=== PATIENT | male | born 1945 | race Caucasian/White ===

== ENCOUNTER 2021-09-09 18:12 | Emergency (ER) | payer MEDICARE ==
[~2021-09-09] VITALS: Ht 180.3 cm; Wt 120.5 kg
--- NOTE | 2021-09-09 23:30 | NUR ---
RELIEVING RN FOR BREAK, PT IS RESTING QUIETLY ON GURNEY, WAITING TO BE REEVALUATED BY PROVIDER, HAS RIDE HOME WITH ROOMMATE, JASON, [phone]
[2021-09-10] VITALS: BP 154/93
== END 2021-09-10 00:45 | disposition home or self-care (01) ==
LOC: ER 18:13
DX: M54.50 Low back pain, unspecified (principal); G89.29 Other chronic pain; F17.200 Nicotine dependence, unspecified, uncomplicated; E11.9 Type 2 diabetes mellitus without complications; W19.XXXA Unspecified fall, initial encounter; Y93.89 Activity, other specified; Y92.89 Other specified places as the place of occurrence of the external cause; Y99.8 Other external cause status
CPT/HCPCS: 72100; 99283; 99285

== ENCOUNTER → 2022-04-14 | Day surgery (SDC) | payer OTHER ==
[~2022-04-14] VITALS: Ht 180.3 cm; Wt 108.7 kg
[~2022-04-14] MED LIST: ACET650S13 PO; APIX5TAB3 PO; ATOR40TA PO; CHLO25TA10 PO; EMPA10TA PO; LIDOcaine 1% 30ml preserv. free vial SQ STA; TRAZ-256 PO
== END | disposition home or self-care (01) ==
LOC: SSTAY O 11:14
PROVIDERS: ATTEND Radiology Vascular & Interventional Radiology
DX: K11.8 Other diseases of salivary glands (principal); Z88.8 Allergy status to other drugs, medicaments and biological substances
CPT/HCPCS: 10005; A6449